=== PATIENT | female | born 1980 | race Caucasian/White ===

== ENCOUNTER 2020-08-12 10:10 | Emergency (ER) | payer OTHER ==
[2020-08-12] MEDS ORDERED: PROPARACAINE 0.5% OPHTH DROPS 15 ML LEFTEYE STA (11:03)
--- NOTE | 2020-08-12 11:03 | ED Physician Documentation ---
PD HPI OPHTHO - Stated complaint Stated Complaint: LT EYE PAIN/SWELLING - Chief complaint Chief Complaint: Heent - History obtained from History obtained from: Patient - History of Present Illness Timing - onset: Today Timing - duration: Hours Timing - details: Gradual onset, Still present Location: Left Quality / character: Aching Associated symptoms: Redness, Swelling Contributing factors: No: Recent URI, FB, UV light (welding etc), Chemical exposure, acid, Chemical exposure, base, Wears glasses, Wears contacts Similar symptoms before: Has not had sx before Recently seen: Not recently seen - Additional information Additional information: 39-year-old female who is visiting here from [place] has developed some pain in the left lower eyelid that began when she awoke this morning. She noted the area to be a bit sore and some redness to the area. She does not have any change to her vision and she does not have a foreign body sensation to the eye itself. She does note some pain when she blinks to the lower lid. Review of Systems Constitutional: denies: Fever Eyes: reports: Irritation. denies: Loss of vision, Decreased vision, Photophobia, Discharge Ears: denies: Ear pain Nose: denies: Rhinorrhea / runny nose, Congestion Throat: denies: Sore throat Cardiac: denies: Chest pain / pressure, Palpitations Respiratory: denies: Dyspnea, Cough GI: denies: Abdominal Pain, Nausea, Vomiting : denies: Dysuria, Frequency PD PAST MEDICAL HISTORY - Past Medical History Past Medical History: Yes Cardiovascular: None Respiratory: None Neuro: None Endocrine/Autoimmune: None GI: None DRAW END HAND: None : None HEENT: None, Dental implants Psych: None Musculoskeletal: None Derm: None - Past Surgical History Past Surgical History: Yes HEENT: Tonsil/Adenoidectomy - Present Medications Home Medications: Ambulatory Orders Medication Instructions Recorded Confirmed Neomycin/Poly/Dex Ophth Drops 1 drops LEFTEYE QID #1 bottle 08/12/20 [Maxitrol Ophth Drops] - Allergies Allergies/Adverse Reactions: Allergies Allergy/AdvReac Type Severity Reaction Status Date / Time No Known Drug Allergies Allergy Verified 08/12/20 10:19 - Social History Does the pt smoke?: No Smoking Status: Never smoker Does the pt drink ETOH?: Yes Does the pt have substance abuse?: No - Immunizations Immunizations are current?: Yes - POLST Patient has POLST: No PD ED PE NORMAL - Vitals Vital signs reviewed: Yes (hypertensive mild ) - General General: Alert and oriented X 3, No acute distress, Well developed/nourished - HEENT HEENT: Atraumatic, PERRL, EOMI, Other (There is no foreign material in the eye or conjunctiva. There is swelling and erythema to the lower lid with inflamation to the mucin glands centrally. No fluorscien uptake. 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 We will place her on Maxitrol and expect rapid resolution. Departure - Departure Disposition: 01 Home, Self Care Clinical Impression: Stye Qualifiers: Laterality: left Eyelid: lower Qualified Code(s): H00.015 - Hordeolum externum left lower eyelid Condition: Stable Instructions: ED Chalaz[place] Follow-Up: Your, doctor [Other] Prescriptions: Neomycin/Poly/Dex Ophth Drops [Maxitrol Ophth Drops] 1 drops LEFTEYE QID #1 bottle
[2020-08-12 11:39] VITALS: BP 136/78
== END 2020-08-12 11:39 | disposition home or self-care (01) ==
LOC: ED 10:10
DX: H00.015 Hordeolum externum left lower eyelid (principal)
CPT/HCPCS: 99282; 99284; J3490